=== PATIENT | female | born 1950 | race African-American/Black ===

== ENCOUNTER 2017-04-13 08:05 | Inpatient (IN) ==
[2017-04-13] MEDS ORDERED: HYDROmorphone 2 MG/1 ML VIAL IV STA ×2 (08:11→09:52)
[2017-04-13] MEDS ORDERED: ONDANSETRON 4 MG/2 ML VIAL IV STA (08:11)
[2017-04-13] MEDS ORDERED: ONDANSETRON 4 MG/2 ML VIAL ONE (08:14)
[2017-04-13] MEDS ORDERED: HYDROmorphone 2 MG/1 ML VIAL ONE ×2 (08:14→09:54)
[2017-04-13] MEDS ORDERED: SODIUM CHLORIDE 0.9% 1,000 ML IV STA (08:22)
--- NOTE | 2017-04-13 08:34 | EKG Report ---
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
--- NOTE | 2017-04-13 09:24 | XRay Report ---
XR abdomen 2V Indication: Abdominal pain. Comparison: Abdominal series 10/06/2013 Technique: Flat and erect images of the abdomen were performed. Findings: Heart size is borderline. Partially calcified left hilar lymph node is demonstrated. Lungs are clear. Atherosclerotic calcification of the aortic knob is demonstrated. No organomegaly suggested. The bowel gas pattern demonstrates no significant abnormality. Bony structures as well as soft tissues demonstrate no evidence of significant pathology. Rounded calcification adjacent the right transverse process of L4 measures 45 mm in transverse dimension and has changed little since comparison study suggesting gonadal vein phlebolith. Other considerations could include right gonadal vein phlebolith. Multiple intrapelvic calcifications are present. Impression: 1. No active process is suggested within the abdomen or pelvis. Other findings as detailed. 04/13/2017 9:16 AM PROCEDURE INTERPRETED AT [facility] DEPARTMENT OF RADIOLOGY Final Report Signed by: Dr. Isreal Carter
[2017-04-13 09:27] LABS: Basophils % 0.3 % (0.0-0.8); Eosinophils # 0.1 10*3/uL (0.0-0.87); Eosinophils % 1.7 % (0.00-10.9); Hemoglobin 12.6 GM/DL (12.0-16.0); Immature Granulocytes % 0.2 %; Immature Granulocytes Absolute 0.01 #; Lymphocytes # 1.2 10*3/uL (1.4-4.0); Lymphocytes % 18.8 % (21.3-54.2); Mean Corpuscular HGB Conc 34.1 GM/DL (32-36); Mean Corpuscular Hemoglobin 32 PG (27-34); Mean Corpuscular Volume 92.7 FL (87-102); Mean Platelet Volume 11.6 FL (9.6-12.0); Monocytes # 0.4 10*3/uL (0.11-0.8); Monocytes % 5.4 % (1.7-12.7); Neutrophils # 4.8 10*3/uL (1.4-7.4); Neutrophils % 73.6 % (38.7-73.9); Platelet Count 185 T/CUMM (130-400); Red Blood Count 3.99 MC/CUMM (3.8-5.5); Red Cell Distribution Width 14.3 % (9.3-17.3); White Blood Count 6.5 T/CUMM (4-12)
--- NOTE | 2017-04-13 09:28 | Ultrasound Report ---
US gallbladder Indication: Right upper quadrant abdominal pain. Comparison: None. Technique: Using transcutaneous probe, ultrasound imaging of the right upper quadrant was performed. Ultrasound images were captured and stored. Imaged structures include the liver, gallbladder, pancreas, right kidney, aorta, and inferior vena cava. Findings: Longitudinal images of the aorta and inferior vena cava appear within normal limits. Pancreas demonstrates no significant abnormality. The liver is normal in size and demonstrates no evidence of focal hepatic mass. Color flow is present within the imaged hepatic and portal venous segments. The common bile duct is normal in size measuring 4.1 mm. The right kidney measures 10.2 cm in craniocaudal dimension and demonstrates prominence of the renal calyceal and pelvic system suggesting mild hydronephrosis. Gallbladder demonstrates no significant abnormality. Impression: 1. Minimal hydronephrosis of the right kidney is suggested. 2. No acute findings are demonstrated. 04/13/2017 9:24 AM PROCEDURE INTERPRETED AT [facility] DEPARTMENT OF RADIOLOGY Final Report Signed by: Dr. Isreal Carter
[2017-04-13 10:01] LABS: Alanine Aminotransferase 42 U/L (13-56); Albumin 3.3 G/DL (3.4-5.0); Alkaline Phosphatase 59 U/L (45-117); Amylase 80 U/L (25-115); Aspartate Amino Transferase 74 U/L (0-37); Blood Urea Nitrogen 15 MG/DL (7-18); Calcium 8.3 MG/DL (8.5-10.1); Glucose 101 MG/DL (74-106); Magnesium 1.7 MG/DL (1.8-2.4); Osmolality,Calculated 288.7 MOS/KG (273-304); Potassium 3.3 MMOL/L (3.5-5.1); Sodium 145 MMOL/L (136-145); Total Protein 7.2 G/DL (6.4-8.3); Troponin I Only < 0.015 NG/ML (0.00-0.045)
--- NOTE | 2017-04-13 10:32 | CT Report ---
Referring physician: Wilmer Gonzalez EXAM: CT abdomen and pelvis with and without contrast DATE: 04/13/2017 COMPARISON: Gallbladder ultrasound 04/13/2017 REASON: Generalized abdominal pain TECHNIQUE: Axial images of the abdomen and pelvis were obtained with and without the use of 100 cc of Omnipaque 350 IV contrast. . Coronal and sagittal reformatted images were also provided. Total DLP was 1247.90 mGy*cm. FINDINGS: Atelectasis at the lung bases with cardiomegaly and coronary artery calcifications. The liver is normal in size with no dilated ducts. 5 mm hypodensity in the left lobe. The gallbladder is distended with no calcified gallstones. The spleen, pancreas and adrenal glands have an unremarkable appearance. Minimal fullness of the right extrarenal pelvis with no renal or ureteral calculi. Calcification in the wall of the nondilated abdominal aorta with no adjacent adenopathy. Minimally increased fluid in the small bowel which is not significantly dilated. Diverticulosis of the colon with no evidence of definite diverticulitis, appendicitis, free air, or free fluid. Increased signal material in the colon. Prior hysterectomy with unremarkable urinary bladder. Degenerative changes are noted. IMPRESSION: Cardiomegaly with coronary artery calcifications and atelectasis at the lung bases. Nonspecific distention of the gallbladder with 5 mm left hepatic cyst. Minimal fullness of the right extrarenal pelvis with no renal or ureteral calculi. Diffuse arterial calcifications. Increased fluid in the small bowel which is not significantly dilated. This finding can be seen with enteritis, etc. Minimal diverticulosis of the colon with increased fecal material. Prior hysterectomy. The CT exam was performed using one or more of the following dose reduction techniques: Automated exposure control and adjustment of the mA and/or kV according to patient size. PROCEDURE INTERPRETED AT [facility] DEPARTMENT OF RADIOLOGY Final Report Signed by: Dr. Lupe Alexander
[2017-04-13] MEDS ORDERED: METOCLOPRAMIDE 10 MG/2 ML VIAL IV STA (10:44)
[2017-04-13 11:23] LABS: Apearance,Urine CLEAR (Clear); Bilirubin,Urine Negative (Negative); Blood, Urine Negative (Negative); Glucose,Urine (UA) Negative (Negative); Ketones,Urine Negative (Negative); Nitrite,Urine Negative (Negative); Protein,Urine Negative; RBC,Urine 1 /HPF (0-4); Squamous Epithelial Cell,Urine Occasional /HPF (0-10); Urine Color Yellow (Yellow); Urine Specific Gravity 1.035 (1.001-1.035); Urine Urobilinogen < 2.0 EU/DL (0.2-1.0); WBC,Urine <1 /HPF (0-6)
[2017-04-13] MEDS ORDERED: ALUMINUM/MAGNES/SIMETH MAX STR 30 ML UDCUP PO PRN (11:33)
[2017-04-13] MEDS ORDERED: ACETAMINOPHEN 325 MG TABLET PO PRN (11:33)
--- NOTE | 2017-04-13 11:37 | Emergency Department Note ---
Darshan Robles Hilary, am scribing for, and in the presence of, Wilmer Gonzalez MD 08:22. Carlos Robles Phillip K, MD, personally performed the services described in this documentation, ascribed by Taylor Sexton in my presence, and it is both accurate and complete . Arrival - Arrival Chief Complaint: Abdominal / Flank Pain ED Nursing Triage Note: c/o abd pain going up into epigastric area on this am. + n/v. last bm was this am. pt will not answer questions Mode of Arrival: Stretcher Limitations: No Limitations Source: Patient, RN Notes Reviewed Time Seen by Provider: 04/13/17 08:13 - History of Present Illness HPI Narrative: Pt is a 66 y/o white female brought into the ED via EMS with c/o abdominal pain which onset this morning. She and her daughter reports that she has had this before and was told that she has diverticulitis. Pt confirms constipation, vomiting clear fluid, abdominal and back pain but denies diarrhea or fever. Pt has a PMHx of diverticulitis, HTN, and dyslipidemia. No other complaints or problems stated in the ED. Onset (ago): hour(s) Allergies/Adverse Reactions: Allergies Allergy/AdvReac Type Severity Reaction Status Date / Time meperidine [From Demerol] Allergy Intermediate Anxiety Verified 03/17/15 11:26 pregabalin [From Lyrica] Allergy Intermediate Anxiety Verified 03/17/15 11:27 sumatriptan [From Imitrex] Allergy Intermediate Chest Pain Verified 03/17/15 11: 26 Home Medications: Home Medications Medication Instructions Recorded Confirmed Type Calcitriol [Calcitriol] 0.25 capsule PO 1200 04/13/17 04/13/17 History Carvedilol [Carvedilol] 12.5 mg PO BID 04/13/17 04/13/17 History Omeprazole [Omeprazole] 20 mg PO 1200 04/13/17 04/13/17 History Potassium Chloride 8 meq PO 1200 04/13/17 04/13/17 History Pravastatin [Pravachol] 40 mg PO BEDTIME 04/13/17 04/13/17 History Promethazine Tab [Phenergan Tab] 25 mg PO BID PRN 04/13/17 04/13/17 History Review of System - Review of System 12 point system: reviewed and no additional remarkable complaints except as stated - Review of System Constitutional: Absent: fever Gastrointestinal: Present: abdominal pain, nausea, vomiting, constipation. Absent: diarrhea Musculoskeletal: Present: lower back pain Medical,Surgical,& Family Hx - Medical History Cardio: History of: Hypertension Endocrine: History of: Dyslipidemia - Social History Smoking Status: Unknown if ever smoked Frequency of Alcohol Use: Unknown Type of Drug Use: Unknown Exam Vital Signs: Vital Signs Temperature 96.8 F L 04/13/17 08:08 Pulse Rate 63 04/13/17 09:45 Respiratory Rate 14 04/13/17 09:45 Blood Pressure 157/78 04/13/17 09:45 O2 Sat by Pulse Oximetry 97 04/13/17 09:45 - General General appearance: alert, in no apparent distress - Head Head exam: Present: atraumatic, normocephalic - Eye Eye exam: Present: normal appearance, PERRL, EOMI - ENT ENT exam: Present: mucous membranes moist, TM's normal bilaterally. Absent: mucous membranes dry - Neck Neck exam: Present: full ROM, trachea midline. Absent: tenderness - Chest Chest inspection: Present: symmetric chest wall rise. Absent: tenderness - Respiratory Respiratory exam: Present: normal lung sounds bilaterally. Absent: respiratory distress - Cardiovascular Cardiovascular exam: Present: regular rate, normal rhythm, normal heart sounds. Absent: murmur, rubs, gallop - Abdominal Exam Abdominal exam: Present: soft, tenderness (RUQ tenderness to direct palpation, slight LUQ tenderness), normal bowel sounds. Absent: distention - Extremities Exam Extremities exam: Present: full ROM. Absent: tenderness - Back Exam Back exam: Present: full ROM. Absent: tenderness - Neurological Exam Neurological exam: Present: alert, oriented X3, CN II-XII intact. Absent: motor sensory deficit - Psychiatric Psychiatric exam: Present: normal affect, normal mood - Skin Skin exam: Present: warm, dry, intact, normal color, rash Course Course Narrative: Dr. Hughes was consulted and he was seen in the ED. Results - Labs CBC & BMP: 04/13/17 09:20 04/13/17 09:20 Lab Results: I have reviewed the patients labs (Urinalysis is normal) Labs: Laboratory Tests 04/13/17 09:20 WBC 6.5 RBC 3.99 Hgb 12.6 Hct 37.0 Lymph % (Auto) 18.8 L Lymph # (Auto) 1.2 L Laboratory Tests 04/13/17 09:20 Sodium 145 Potassium 3.3 L Chloride 108 H Carbon Dioxide 27 Calcium 8.3 L Magnesium 1.7 L AST 74 H Albumin 3.3 L Globulin 3.9 H Albumin/Globulin Ratio 0.8 L Laboratory Tests 04/13/17 10:23 Urine Color Yellow Urine Appearance Clear Urine Urobilinogen < 2.0 H - EKG EKG results: interpreted by ERMEfrain, sinus rhythm (Nonspecific ST-T changes) - Diagnostic Findings Procedure: Abdominal x-ray: report reviewed by me (No acute process is suggested within th eabdomen or pelvis. ), CT Abdomen and Pelvis: report reviewed by me (Cardiomegaly with coronary artery calcifications and atelectasis at the lung bases. Nonespecific distention of the gallbladder with 5mm left hepatic cyst. Minimal fullness of the right extrarenal pelvis with no renal or ureteral calculi. Diffuse arterial calcifications. Increased fluid in the small bowel which is not significantly dilated. This finding can be seen with enteritis etc. Minimal diverticulosis of the colon with increased fecal material. Prior Hysterectomy. ), Ultrasound: report reviewed by me, pending ( gallbladder: 1. Minimal hydroephrosis of the right kidney is suggested 2. No acute findings are demonstrated) Disposition Clinical Impression: Possible acalculous cholecystitis, Abdominal pain, Vomiting Case discussed with: patient Disposition: Still a Patient Condition: Guarded Additional Instructions: Admit for further workup.
--- NOTE | 2017-04-13 11:45 | General Surg History&Physical ---
Assessment and Plan - Time spent with patient Time spent with patient: Greater than 30 minutes (1) Abdominal pain Status: Acute Assessment and plan: Impression: Abdominal pain etiology unclear questionable cholecystitis Plan: IV fluids and IV antibiotics and plan to do a HIDA scan tomorrow Current Visit: Yes Qualifiers: Abdominal location: epigastric Qualified Code(s): R10.13 - Epigastric pain (2) Chronic obstructive pulmonary disease Status: Acute Assessment and plan: Chronic obstructive pulmonary disease diagnosis per Dr. Mills Current Visit: Yes (3) Weight loss Status: Acute Assessment and plan: Weight loss according to the patient etiology unknown. Current Visit: Yes History of Present Illness Chief complaint: Recurrent abdominal pain with nausea and vomiting History of present illness: Ms. Jj is a 66 year old female -[place] who comes to the emergency room because of a second episode of some nausea and vomiting and abdominal pain onset earlier this morning. She cannot give a good history for any fatty food intolerance at this time. Apparently several weeks ago she was at [facility] because of a similar episode and was told she had diverticulitis. The daughter seems indicate that her pain seems to be more epigastric right-sided than in the left lower quadrant area. She has had a colonoscopy little while back and is apparently had a recent EGD that was described as negative. All this was done at [place]. She came here where her labs look pretty normal then she had a CT scan of the abdomen and pelvis that was unremarkable with a little bit of prominence of the gallbladder. Ultrasound of the gallbladder though was pretty negative with no significant wall thickening no fluid in and no evidence of any stones in the gallbladder. Since this is questionable we will go ahead and plan to put her hand on some IV fluids and clear liquids with the idea of planning a HIDA scan tomorrow to see if it is diagnostic of anything at this time. Home Medications Medication Instructions Recorded Confirmed Type Calcitriol [Calcitriol] 0.25 capsule PO 1200 04/13/17 04/13/17 History Carvedilol [Carvedilol] 12.5 mg PO BID 04/13/17 04/13/17 History Omeprazole [Omeprazole] 20 mg PO 1200 04/13/17 04/13/17 History Potassium Chloride 8 meq PO 1200 04/13/17 04/13/17 History Pravastatin [Pravachol] 40 mg PO BEDTIME 04/13/17 04/13/17 History Promethazine Tab [Phenergan Tab] 25 mg PO BID PRN 04/13/17 04/13/17 History Allergies Allergy/AdvReac Type Severity Reaction Status Date / Time meperidine [From Demerol] Allergy Intermediate Anxiety Verified 03/17/15 11:26 pregabalin [From Lyrica] Allergy Intermediate Anxiety Verified 03/17/15 11:27 sumatriptan [From Imitrex] Allergy Intermediate Chest Pain Verified 03/17/15 11: 26 Medical,Surgical,& Family Hx - Medical History Cardio: History of: Hypertension Endocrine: History of: Dyslipidemia, Thyroid Disorder Musculoskeletal: History of: Back/Neck Problems - Surgical History HEENT Surgeries: Surgical HX of: Thyroid Surgery (Thyroid and Parathyroid) Abdominal Surgeries: Surgical HX of: Colonoscopy (Dr Rodriguez) - Social History Smoking Status: Unknown if ever smoked Frequency of Alcohol Use: Unknown Type of Drug Use: Unknown Exam - Constitutional Vitals: Period Temp Pulse Resp BP Sys/Cano Pulse Ox Last 24 Hr 96.8 F-96.8 F 60-91 14-22 157-174/78-88 96-100 General appearance: mild distress - Head Head exam: Present: normal inspection - ENT ENT exam: Present: normal exam - Neck Neck exam: Present: normal inspection - Respiratory Respiratory exam: Present: clear to auscultation bilaterally, rales - Cardiovascular Cardiovascular exam: Present: RRR - GI/Abdominal GI/Abdominal exam: Present: hypoactive bowel sounds, soft. Absent: mass, Jackson 's sign, tenderness - Extremities Exam Extremities exam: Present: normal inspection - Back Exam Back exam: Present: normal inspection - Neurological Exam Neurological exam: Present: alert, oriented X3, CN II-XII intact - Skin Skin exam: Present: normal color, warm, dry 12 point system: reviewed and no additional remarkable complaints except as stated Quality Measures - VTE Contraindication to Pharmacological VTE Prophylaxis: High Risk of Bleeding Results - Labs CBC & BMP: 04/13/17 09:20 04/13/17 09:20 Lab Results: I have reviewed the past 24 hour labs
[2017-04-13] MEDS: DEXTROSE 5% NACL 0.45% 1,000 ML IV SCH (13:46)
[2017-04-13] MEDS: CALCITRIOL 0.25 MCG CAPSULE PO SCH (13:51)
[2017-04-13] MEDS: HYDROmorphone 2 MG/1 ML VIAL IV PRN ×2 (13:52→20:16)
[2017-04-13] MEDS: ONDANSETRON 4 MG/2 ML VIAL IV PRN ×2 (13:55→20:34)
[2017-04-13] MEDS ORDERED: diphenhydrAMINE CAP 25 MG CAPSULE PO PRN (22:04)
[2017-04-13] MEDS: DOCUSATE SODIUM 100 MG CAPSULE PO SCH (22:18)
[2017-04-13] MEDS: PRAVASTATIN 40 MG TABLET PO SCH (22:18)
[2017-04-13] MEDS: CARVEDILOL 12.5 MG TABLET PO SCH (22:18)
[2017-04-14] MEDS: DEXTROSE 5% NACL 0.45% 1,000 ML IV SCH ×3 (02:52→15:30)
[2017-04-14 05:42] LABS: Basophils % 0.2 % (0.0-0.8); Eosinophils # 0.1 10*3/uL (0.0-0.87); Eosinophils % 0.9 % (0.00-10.9); Hematocrit 34.7 VOL% (35.7-47.0); Hemoglobin 11.7 GM/DL (12.0-16.0); Immature Granulocytes % 0.3 %; Immature Granulocytes Absolute 0.02 #; Lymphocytes # 1.1 10*3/uL (1.4-4.0); Lymphocytes % 19.8 % (21.3-54.2); Mean Corpuscular HGB Conc 33.7 GM/DL (32-36); Mean Corpuscular Hemoglobin 32 PG (27-34); Mean Corpuscular Volume 93.8 FL (87-102); Mean Platelet Volume 11.9 FL (9.6-12.0); Monocytes # 0.5 10*3/uL (0.11-0.8); Monocytes % 8.5 % (1.7-12.7); Neutrophils % 70.3 % (38.7-73.9); Platelet Count 172 T/CUMM (130-400); Red Cell Distribution Width 14.3 % (9.3-17.3); White Blood Count 5.8 T/CUMM (4-12)
[2017-04-14 06:19] LABS: Bilirubin,Total 0.9 MG/DL (0.2-1.0); Calcium 7.6 MG/DL (8.5-10.1); Osmolality,Calculated 284.8 MOS/KG (273-304); Potassium 3.8 MMOL/L (3.5-5.1); Total Protein 6.3 G/DL (6.4-8.3)
[2017-04-14] MEDS: DOCUSATE SODIUM 100 MG CAPSULE PO SCH ×2 (09:30→20:40)
[2017-04-14] MEDS: CARVEDILOL 12.5 MG TABLET PO SCH ×2 (09:30→20:40)
[2017-04-14] MEDS: PANTOPRAZOLE 40 MG VIAL IV SCH (09:31)
--- NOTE | 2017-04-14 11:42 | XRay Report ---
Exam: XR chest 2V Indication: Abdominal pain Comparison study: Prior chest radiograph July 16, 2014 Findings: Left hilar calcified lymph node is unchanged from prior. Cardiac silhouette is borderline enlarged, similar to prior. Mediastinal contours appear within normal limits and stable from prior. There is no focal consolidation, pneumothorax or pleural effusion identified. Impression: No acute cardiopulmonary process. No significant change from prior. PROCEDURE INTERPRETED AT [facility] DEPARTMENT OF RADIOLOGY Final Report Signed by: Hammad Hammond
--- NOTE | 2017-04-14 12:52 | General Surgery Progress Note ---
Assessment and Plan - Time spent with patient Time spent with patient: Less than 30 minutes (1) Abdominal pain Status: Acute Assessment and plan: Impression: Abdominal pain etiology unclear questionable cholecystitis Plan: IV fluids and IV antibiotics and plan to do a HIDA scan tomorrow 04/14/2017. Patient in general is better at this time. Less pain. Her labs are all normal looking especially her liver function studies. HIDA scan is now complete and appears to be normal. I think we can safely say that her pain was not related to the gallbladder. We will put her on a diet and see what her symptoms do may be able to go home tomorrow. Current Visit: Yes Qualifiers: Abdominal location: epigastric Qualified Code(s): R10.13 - Epigastric pain (2) Chronic obstructive pulmonary disease Status: Acute Assessment and plan: Chronic obstructive pulmonary disease diagnosis per Dr. Mills Current Visit: Yes (3) Weight loss Status: Acute Assessment and plan: Weight loss according to the patient etiology unknown. Current Visit: Yes Subjective Patient reports: Present: no new complaints, pain is less, afebrile Exam - Constitutional Vitals: Period Temp Pulse Resp BP Sys/Cano Pulse Ox Last 24 Hr 97.2 F-98.3 F 51-64 16-22 103-153/56-75 94-100 General appearance: no acute distress - Head Head exam: Present: normal inspection - ENT ENT exam: Present: normal exam - Neck Neck exam: Present: normal inspection - Respiratory Respiratory exam: Present: clear to auscultation bilaterally - Cardiovascular Cardiovascular exam: Present: RRR - GI/Abdominal GI/Abdominal exam: Present: hypoactive bowel sounds, soft. Absent: tenderness - Extremities Exam Extremities exam: Present: normal inspection - Back Exam Back exam: Present: normal inspection - Neurological Exam Neurological exam: Present: alert, oriented X3, CN II-XII intact - Skin Skin exam: Present: normal color, warm, dry Results - Labs CBC & BMP: 04/14/17 04:45 04/14/17 04:45 Lab Results: I have reviewed the past 24 hour labs Quality Measures - VTE Contraindication to Pharmacological VTE Prophylaxis: High Risk of Bleeding
--- NOTE | 2017-04-14 12:58 | Nuclear Medicine Report ---
Hepatobiliary Scan with Ejection Fraction Date Performed: 04/14/2017 Radiopharmaceutical: 5 mCi Tc-99m Mebrofenin I.V. 8 ounces ensure p.o administered at the conclusion of the procedure to calculate gallbladder ejection fraction. Patient denied symptoms. Clinical Information: 66 years old Female with right upper quadrant recurrent abdominal pain. Comparison: Gallbladder ultrasound and CT abdomen and pelvis 04/13/2017 Technique: Two minute dynamic images were obtained for 60 minutes after injection of tracer. Findings: Normal uptake within the liver with excretion and collection within the gallbladder at 10 minutes. There is visualization within the common bile duct and common bile duct/small bowel at 20 minutes. The computed gallbladder ejection fraction is 89% (normal is greater than or equal to 38%) Conclusion: No scintigraphic evidence of acute cholecystitis. Normal gallbladder ejection fraction. PROCEDURE INTERPRETED AT [facility] DEPARTMENT OF RADIOLOGY Final Report Signed by: Hammad Hammond
[2017-04-14] MEDS: POTASSIUM CHLORIDE 8 MEQ CAPSULE PO SCH (13:17)
[2017-04-14] MEDS: CALCITRIOL 0.25 MCG CAPSULE PO SCH (13:18)
[2017-04-14] MEDS: PRAVASTATIN 40 MG TABLET PO SCH (20:40)
[2017-04-15] MEDS: HYDROmorphone 2 MG/1 ML VIAL IV PRN (00:23)
[2017-04-15] MEDS: DEXTROSE 5% NACL 0.45% 1,000 ML IV SCH ×3 (00:24→20:00)
[2017-04-15] MEDS: DOCUSATE SODIUM 100 MG CAPSULE PO SCH ×2 (08:46→20:37)
[2017-04-15] MEDS: CARVEDILOL 12.5 MG TABLET PO SCH ×2 (08:47→20:37)
[2017-04-15] MEDS: PANTOPRAZOLE 40 MG VIAL IV SCH (08:47)
[2017-04-15] MEDS: ONDANSETRON 4 MG/2 ML VIAL IV PRN (10:10)
--- NOTE | 2017-04-15 11:17 | General Surgery Progress Note ---
Assessment and Plan (1) Abdominal pain Status: Acute Assessment and plan: Impression: Abdominal pain etiology unclear questionable cholecystitis Plan: IV fluids and IV antibiotics and plan to do a HIDA scan tomorrow 04/14/2017. Patient in general is better at this time. Less pain. Her labs are all normal looking especially her liver function studies. HIDA scan is now complete and appears to be normal. I think we can safely say that her pain was not related to the gallbladder. We will put her on a diet and see what her symptoms do may be able to go home tomorrow. 04/15/2017. Patient's HIDA scan was completely normal with an ejection fraction of 80%. Ultrasound of the gallbladder was no stones and CT scan of the abdomen looked unremarkable. Did start the patient on some solid food yesterday and now she is still complaining of some abdominal discomfort and nausea and vomiting. Did not have any clear etiology for this at this time so will consult GI for possible scopes in order to see if we can determine a reason for this process. Current Visit: Yes Qualifiers: Abdominal location: epigastric Qualified Code(s): R10.13 - Epigastric pain (2) Chronic obstructive pulmonary disease Status: Acute Assessment and plan: Chronic obstructive pulmonary disease diagnosis per Dr. Mills Current Visit: Yes (3) Weight loss Status: Acute Assessment and plan: Weight loss according to the patient etiology unknown. Current Visit: Yes Subjective Patient reports: Present: pain is less, nausea, vomiting Exam - Constitutional Vitals: Period Temp Pulse Resp BP Sys/Cano Pulse Ox Last 24 Hr 97.2 F-98.7 F 60-66 18-20 133-161/61-78 94-99 General appearance: mild distress - Head Head exam: Present: normal inspection - ENT ENT exam: Present: normal exam - Neck Neck exam: Present: normal inspection - Respiratory Respiratory exam: Present: clear to auscultation bilaterally, rales - Cardiovascular Cardiovascular exam: Present: RRR - GI/Abdominal GI/Abdominal exam: Present: hypoactive bowel sounds, soft. Absent: distended, tenderness - Extremities Exam Extremities exam: Present: normal inspection - Back Exam Back exam: Present: normal inspection - Neurological Exam Neurological exam: Present: alert, oriented X3, CN II-XII intact - Skin Skin exam: Present: normal color, warm, dry Results - Labs CBC & BMP: 04/14/17 04:45 04/14/17 04:45 Lab Results: I have reviewed the past 24 hour labs - Diagnostic Findings Procedure: X-ray: report reviewed by me (HIDA scan normal) Quality Measures - VTE Contraindication to Pharmacological VTE Prophylaxis: High Risk of Bleeding
[2017-04-15] MEDS: CALCITRIOL 0.25 MCG CAPSULE PO SCH (12:24)
[2017-04-15] MEDS: POTASSIUM CHLORIDE 8 MEQ CAPSULE PO SCH (12:25)
[2017-04-15] MEDS: PRAVASTATIN 40 MG TABLET PO SCH (20:37)
[2017-04-16] MEDS: DEXTROSE 5% NACL 0.45% 1,000 ML IV SCH ×4 (05:06→22:42)
[2017-04-16 05:17] LABS: Basophils % 0.4 % (0.0-0.8); Eosinophils # 0.2 10*3/uL (0.0-0.87); Eosinophils % 4.3 % (0.00-10.9); Hematocrit 33.5 VOL% (35.7-47.0); Hemoglobin 11.3 GM/DL (12.0-16.0); Immature Granulocytes % 0.2 %; Immature Granulocytes Absolute 0.01 #; Lymphocytes # 1.9 10*3/uL (1.4-4.0); Mean Corpuscular HGB Conc 33.7 GM/DL (32-36); Mean Corpuscular Hemoglobin 31 PG (27-34); Mean Corpuscular Volume 92.8 FL (87-102); Monocytes # 0.6 10*3/uL (0.11-0.8); Monocytes % 10.5 % (1.7-12.7); Neutrophils # 2.9 10*3/uL (1.4-7.4); Neutrophils % 50.6 % (38.7-73.9); Platelet Count 161 T/CUMM (130-400); Red Blood Count 3.61 MC/CUMM (3.8-5.5); Red Cell Distribution Width 14.3 % (9.3-17.3); White Blood Count 5.6 T/CUMM (4-12)
[2017-04-16 05:51] LABS: Albumin 2.7 G/DL (3.4-5.0); Bilirubin,Total 0.4 MG/DL (0.2-1.0); Osmolality,Calculated 286.7 MOS/KG (273-304); Potassium 3.5 MMOL/L (3.5-5.1)
[2017-04-16] MEDS: BISACODYL 5 MG TABLET PO PRN (09:41)
[2017-04-16] MEDS: CARVEDILOL 12.5 MG TABLET PO SCH ×2 (09:42→22:43)
[2017-04-16] MEDS: HYDROmorphone 2 MG/1 ML VIAL IV PRN (09:42)
[2017-04-16] MEDS: DOCUSATE SODIUM 100 MG CAPSULE PO SCH ×2 (09:45→22:42)
--- NOTE | 2017-04-16 10:38 | Gastrointestinal Consult Note ---
Assessment and Plan (1) Abdominal pain Status: Acute Assessment and plan: 04/16-sudden onset of abdominal pain with nausea and vomiting. History of peptic ulcer disease. No other associated symptoms. Negative gallbladder workup at this time. Prior endoscopy at [facility]. Obtain [facility] endoscopy records. Plan for EGD tomorrow to further evaluate. Plan an addendum to followed by Dr. Simon. Current Visit: Yes Qualifiers: Abdominal location: epigastric Qualified Code(s): R10.13 - Epigastric pain History of Present Illness Chief complaint: Nausea, vomiting and epigastric pain History of present illness: Ms. Jj is a 66 year old female who was admitted to the hospital on 04/13 with sudden onset of epigastric pain with intractable nausea and vomiting. Patient' s daughter is at bedside and assist in history taking. Information also obtained from chart review. Patient states that she was awakened on Sunday morning out of sleep with an onset of lower abdominal pain that gradually radiated to her epigastric region. She states that the pain became more severe nature as the morning progressed and then she had an onset of nausea with some intractable vomiting. She denies any coffee-ground emesis or hematemesis with the vomiting episodes at that time. She also denies any melena or hematochezia now or in the recent past. She states that she has had a pain like this in the past a year ago and she was seen at [facility] and found to have peptic ulcer disease. She states this feels similar to that pain. She denies a history of NSAID use. She states she has lost approximately 15 pounds in the last month from this pain recurring and loss of appetite as well as inability to eat due to the nausea. She also reports a history of dysphagia with dilation in the past and states that she is having continued difficulty swallowing solids and pills at times. She also states that it constantly feels like something is stuck in her throat. CT of abdomen was noted to be unremarkable with acute findings. Gallbladder ultrasound was negative with no cholecystitis or cholelithiasis and HIDA scan was normal as well with EF of 89%. LFTs are unremarkable. BUN/creatinine ratio is normal at 7. Hemoglobin is stable 11.3. Her diet was resumed on yesterday following her HIDA scan however she is not been able to tolerate any food intake at this point. Home Medications Medication Instructions Recorded Confirmed Type Calcitriol [Calcitriol] 1 capsule PO 1200 04/13/17 04/13/17 History Carvedilol [Carvedilol] 12.5 mg PO BID 04/13/17 04/13/17 History Omeprazole [Omeprazole] 20 mg PO 1200 04/13/17 04/13/17 History Potassium Chloride 8 meq PO 1200 04/13/17 04/13/17 History Pravastatin [Pravachol] 40 mg PO BEDTIME 04/13/17 04/13/17 History Promethazine Tab [Phenergan Tab] 25 mg PO BID PRN 04/13/17 04/13/17 History Levothyroxine Tab [Synthroid Tab] 112 mcg PO DAILY@0700 04/14/17 04/14/17 History Allergies Allergy/AdvReac Type Severity Reaction Status Date / Time meperidine [From Demerol] Allergy Intermediate Anxiety Verified 03/17/15 11:26 pregabalin [From Lyrica] Allergy Intermediate Anxiety Verified 03/17/15 11:27 sumatriptan [From Imitrex] Allergy Intermediate Chest Pain Verified 03/17/15 11: 26 Medical,Surgical,& Family Hx - Medical History Cardio: History of: Hypertension Neurology: History of: Migraine Endocrine: History of: Dyslipidemia, Thyroid Disorder Respiratory: History of: Bronchitis Gastrointestinal: History of: Bowel Obstruction, Diverticulitis/ Diverticulosis , GERD Musculoskeletal: History of: Back/Neck Problems - Surgical History Cardiac Surgeries: Sugical HX of: Cardiac Catheterization (About 2 years ago) HEENT Surgeries: Surgical HX of: Thyroid Surgery (Thyroid and Parathyroid) Abdominal Surgeries: Surgical HX of: Colonoscopy (Dr Rodriguez) Reproductive Surgeries: Surgical HX of;: Breast Surgery (biopsy of both breast cyst), Hysterectomy - Family History Family History: Reports;: Family Heart Disease (father diet OK), Family Hypertension, Family Stroke (mother had cva) - Social History Smoking Status: Unknown if ever smoked Frequency of Alcohol Use: Unknown Type of Drug Use: Unknown 12 point system: reviewed and no additional remarkable complaints except as stated - Constitutional Constitutional: Present: as per HPI, weight loss (15 pounds 1 month) - EENT Eyes: Present: as per HPI Ears: Present: as per HPI Nose, mouth and throat: Present: as per HPI, dysphagia - Cardiovascular Cardiovascular: Present: as per HPI - Respiratory Respiratory: Present: as per HPI - Gastrointestinal Gastrointestinal: Present: as per HPI, abdominal pain, dysphagia, nausea, vomiting - Genitourinary Genitourinary: Present: as per HPI - Musculoskeletal Musculoskeletal: Present: as per HPI - Neurological Neurological: Present: as per HPI - Psychiatric Psychiatric: Present: as per HPI - Endocrine Endocrine: Present: as per HPI - Hematologic/Lymphatic Hematologic/Lymphatic: Present: as per HPI Exam - Constitutional Vitals: Period Temp Pulse Resp BP Sys/Cano Pulse Ox Last 24 Hr 97.3 F-98.9 F 56-60 18-20 132-152/72-78 95-100 General appearance: normal weight, no acute distress - Head Head exam: Present: normal inspection, normocephalic - Eye Eye exam: Present: other (Lids and conjunctivae unremarkable). Absent: scleral icterus - ENT ENT exam: Present: normal exam, normal oropharynx - Neck Neck exam: Present: normal inspection - Respiratory Respiratory exam: Present: clear to auscultation bilaterally. Absent: rales, rhonchi, wheezes - Cardiovascular Cardiovascular exam: Present: regular rate and rhythm. Absent: diastolic murmur , JVD, systolic murmur - GI/Abdominal GI/Abdominal exam: Present: normal bowel sounds, tenderness, soft. Absent: ascites, distended, mass, organomegaly - Extremities Exam Extremities exam: Present: normal inspection, full ROM - Back Exam Back exam: Present: normal inspection - Neurological Exam Neurological exam: Present: alert, oriented X3 - Psychiatric Psychiatric exam: Present: normal affect, normal mood - Skin Skin exam: Present: normal color, warm, dry Results - Labs CBC & BMP: 04/16/17 04:19 04/16/17 04:19 Lab Results: I have reviewed the past 24 hour labs - Diagnostic Findings Procedure: CT Abdomen and Pelvis: report reviewed by me, Ultrasound: report reviewed by me Quality Measures - VTE Contraindication to Pharmacological VTE Prophylaxis: High Risk of Bleeding
[2017-04-16] MEDS: CALCITRIOL 0.25 MCG CAPSULE PO SCH (11:08)
[2017-04-16] MEDS: POTASSIUM CHLORIDE 8 MEQ CAPSULE PO SCH (11:08)
[2017-04-16] MEDS: PANTOPRAZOLE 40 MG VIAL IV SCH (11:10)
--- NOTE | 2017-04-16 13:23 | General Surgery Progress Note ---
Assessment and Plan (1) Abdominal pain Status: Acute Assessment and plan: Impression: Abdominal pain etiology unclear questionable cholecystitis Plan: IV fluids and IV antibiotics and plan to do a HIDA scan tomorrow 04/14/2017. Patient in general is better at this time. Less pain. Her labs are all normal looking especially her liver function studies. HIDA scan is now complete and appears to be normal. I think we can safely say that her pain was not related to the gallbladder. We will put her on a diet and see what her symptoms do may be able to go home tomorrow. 04/15/2017. Patient's HIDA scan was completely normal with an ejection fraction of 80%. Ultrasound of the gallbladder was no stones and CT scan of the abdomen looked unremarkable. Did start the patient on some solid food yesterday and now she is still complaining of some abdominal discomfort and nausea and vomiting. Did not have any clear etiology for this at this time so will consult GI for possible scopes in order to see if we can determine a reason for this process. 04/16/2017. Patient still claimed that she is unable to eat having sense of nausea and maybe a little bit of vomiting at times if she tries to eat anything solid. She describes loss of good bit of weight over the last couple months and a due to this inability to eat and her complaint of the nausea and the discomfort in the abdomen. With clearing of the gallbladder is okay and we are waiting for GI to see her to see if they can help us determine what this problem might be and how we can improve it so that she will continue to lose weight. Current Visit: Yes Qualifiers: Abdominal location: epigastric Qualified Code(s): R10.13 - Epigastric pain (2) Chronic obstructive pulmonary disease Status: Acute Assessment and plan: Chronic obstructive pulmonary disease diagnosis per Dr. Mills Current Visit: Yes (3) Weight loss Status: Acute Assessment and plan: Weight loss according to the patient etiology unknown. Current Visit: Yes Subjective Patient reports: Present: no new complaints, bowel movement, nausea, afebrile, other (Patient still says that she is unable to eat without having some nausea and possible vomiting although is not clearly documented. She describes loss of weight due to her inability to eat.) Exam - Constitutional Vitals: Period Temp Pulse Resp BP Sys/Cano Pulse Ox Last 24 Hr 97.6 F-98.9 F 56-60 18-20 132-152/73-78 95-100 General appearance: mild distress - Head Head exam: Present: normal inspection - ENT ENT exam: Present: normal exam - Neck Neck exam: Present: normal inspection - Respiratory Respiratory exam: Present: clear to auscultation bilaterally, rales - Cardiovascular Cardiovascular exam: Present: RRR - GI/Abdominal GI/Abdominal exam: Present: normal bowel sounds, soft. Absent: distended, tenderness - Extremities Exam Extremities exam: Present: normal inspection - Back Exam Back exam: Present: normal inspection - Neurological Exam Neurological exam: Present: alert, oriented X3, CN II-XII intact - Skin Skin exam: Present: normal color, warm, dry Results - Labs CBC & BMP: 04/16/17 04:19 04/16/17 04:19 Lab Results: I have reviewed the past 24 hour labs Quality Measures - VTE Contraindication to Pharmacological VTE Prophylaxis: High Risk of Bleeding
[2017-04-16] MEDS: PRAVASTATIN 40 MG TABLET PO SCH (22:43)
[2017-04-17] MEDS: DEXTROSE 5% NACL 0.45% 1,000 ML IV SCH ×3 (03:09→23:57)
[2017-04-17] MEDS: HYDROmorphone 2 MG/1 ML VIAL IV PRN (05:05)
--- NOTE | 2017-04-17 09:11 | Event Note ---
Patient is seen and evaluated while awaiting EGD. She still complains of abdominal pain that is primarily epigastric in nature. Denies nausea and vomiting this morning. She says her pain is "about the same". We will await results of EGD before planning anything further.
[2017-04-17] MEDS: CARVEDILOL 12.5 MG TABLET PO SCH ×2 (10:39→20:45)
[2017-04-17] MEDS: PANTOPRAZOLE 40 MG VIAL IV SCH (10:39)
[2017-04-17] MEDS: LEVOTHYROXINE 112 MCG TABLET PO SCH (10:39)
[2017-04-17] MEDS ORDERED: PROPOFOL 200 MG/20 ML VIAL IV ONE (13:25)
[2017-04-17] MEDS ORDERED: LIDOCAINE 2% 5 ML VIAL ONE (13:25)
--- NOTE | 2017-04-17 13:34 | History and Physical Update ---
History and Physical Update - History and Physical H&P was reviewed, the patient examined and there: are no changes in the patients condition since last H&P was completed. - Physical Exam Mental Status: alert and oriented Heart: regular rate and rhythm Lung: clear to auscultation Abdomen: within normal limits Vitals: within normal limits
--- NOTE | 2017-04-17 13:37 | Operative Note ---
Date of procedure: 04/17/17 Pre-op diagnosis: Intractable nausea with vomiting Procedure: Procedure: Esophagogastroduodenoscopy with bougie dilation esophagus Brief clinical abstract: Patient is a 66-year-old female who has had intractable nausea with some vomiting in the last 4-5 days. She has had negative gallbladder evaluation. She also does complain of some dysphagia to solids last few months. Indication for procedure: Intractable nausea and vomiting, dysphagia Endoscopic findings:[After informed consent was obtained, the patient was placed in the left lateral decubitus position. The gastroscope was inserted in the upper esophagus under direct vision with no resistance encountered. Esophageal mucosa appeared normal down to the squamocolumnar junction. There was a mildly obstructive fibrous appearing stricture at that level consistent with reflux etiology. A small 1-2 cm long hiatal hernia was present just distal to this. The endoscope was advanced in the stomach which was carefully examined including retroflexed view of the cardia and fundus with no other abnormality seen. The pyloric channel, duodenal bulb, second and third portion of the duodenum were normal. The endoscope was withdrawn and Zepeda dilator size 54 [place] was inserted in the upper esophagus and advanced beyond the level of the GE junction with mild resistance encountered. No blood was noted on the dilator afterwards and she had no chest pain. She appeared to tolerate the procedure well. Impression: #1 distal esophageal stricture secondary to GERD-status post bougie dilation #2 small hiatal hernia Recommendations: PPI therapy and follow clinically for now. Try to advance diet. Anesthesia: MAC Surgeon / Physician: Miguel A Simon Estimated blood loss: none Specimens: none sent Condition: stable Disposition: post procedure unit Results - Labs CBC & BMP: 04/16/17 04:19 04/16/17 04:19 Discharge Plan - Discharge Medications No Action Pravastatin [Pravachol] 40 mg PO BEDTIME Potassium Chloride 8 meq PO 1200 Omeprazole [Omeprazole] 20 mg PO 1200 Carvedilol [Carvedilol] 12.5 mg PO BID Calcitriol [Calcitriol] 1 capsule PO 1200 Promethazine Tab [Phenergan Tab] 25 mg PO BID PRN PRN Reason: Nausea Levothyroxine Tab [Synthroid Tab] 112 mcg PO DAILY@0700 - Follow Up or Referral - Forms/Instructions
--- NOTE | 2017-04-17 13:40 | Anesthesia Post-Op ---
Anesthesia Post OP - Post Ansesthetic Evaluation Patient seen in post op: Yes Resp: within normal limits CV: within normal limits Mental: within normal limits Temp: within normal limits [id number]: within normal limits Nausea and Vomiting: within normal limits Pain: within normal limits
[2017-04-17] MEDS: CALCITRIOL 0.25 MCG CAPSULE PO SCH (17:52)
[2017-04-17] MEDS: DOCUSATE SODIUM 100 MG CAPSULE PO SCH ×2 (17:52→20:44)
[2017-04-17] MEDS: POTASSIUM CHLORIDE 8 MEQ CAPSULE PO SCH (17:55)
[2017-04-17] MEDS: BISACODYL 5 MG TABLET PO PRN (17:56)
[2017-04-17] MEDS: PRAVASTATIN 40 MG TABLET PO SCH (20:44)
[2017-04-18] MEDS: DEXTROSE 5% NACL 0.45% 1,000 ML IV SCH ×2 (05:21→11:53)
[2017-04-18] MEDS: LEVOTHYROXINE 112 MCG TABLET PO SCH (06:34)
[2017-04-18] MEDS: DOCUSATE SODIUM 100 MG CAPSULE PO SCH (08:16)
[2017-04-18] MEDS: CARVEDILOL 12.5 MG TABLET PO SCH (08:16)
[2017-04-18] MEDS: PANTOPRAZOLE 40 MG VIAL IV SCH (08:17)
--- NOTE | 2017-04-18 09:40 | Discharge Summary ---
Hospital Course - Hospital Course Hospital Course: Discharge summary: Discharge diagnosis: 1. Recurrent abdominal discomfort and nausea and vomiting etiology unclear. 2. Negative evaluation for cholecystitis and cholelithiasis. 3. Distal esophageal stricture with some reflux disease. Surgeon Dr. Hughes Loss Prevention/Safety District Manager Dr. Horton Procedure was EGD Brief summary: 66-year-old Afro[place] female came in the emergency room because of a recurring episode of nausea and vomiting with some epigastric discomfort. This has been a recurrent process over the last several months and she describes not been able to eat much and having weight loss about 15 pounds. She was seen in the emergency room where labs all look in normal especially liver function studies. At that point she received a ultrasound gallbladder basically was normal and then CT scan abdomen pelvis and also was normal and unremarkable. No stones were found in the gallbladder at this time. We admitted her put her on some IV antibiotics and went ahead and plan a HIDA scan the next day. The HIDA scan though was completely normal with an ejection fraction of 80%. At that point so we elected to go ahead and feed the patient since a gallbladder workup appeared to be negative. Unfortunately she had some more nausea and vomiting so we will consult GI at this time. Dr. Simon saw her and begin to evaluate her. Ended up doing an EGD that showed a little stricture in the esophagus that he dilated but otherwise was negative. No clear etiology for her complaints at this time but he did start her on some food and she seems to feel that she is better today and may be able to go home and tolerate food at that time. Since she is desiring to go home and a workup so far is negative we will let her go home and encourage her to see her family physician Dr. Hernandez in 2-3 weeks to be sure that all this can be followed up and that should be aware of what we found here. No good clear etiology for her symptoms this at this time. - Time spent with patient Time with patient DS: Less than 30 minutes Diagnosis - Discharge Diagnosis (1) Abdominal pain Status: Resolved (2) Chronic obstructive pulmonary disease Status: Chronic (3) Weight loss Status: Chronic Specialty Discharge - Follow Up or Referrals - Speciality Discharge Instructions Surgery Instructions: 1. Patient may increase her level of activities as tolerated. 2. I have encouraged her to eat good food and watch her weight closely. 3. I have encouraged her to check with Dr. Hernandez in about 2-3 weeks for her to follow-up and watch this process over time. Discharge Plan - Discharge Data Disposition: Disch To Home/Self Care Condition at Discharge: Stable Discharge Diet: advance to your usual diet Activity: resume usual activities as tolerated Hygiene: may shower Weight Bearing at Discharge: full weight bearing Driving: no restrictions Contact your physician if you experience:: fever over 101, Nausea/Vomiting, pain uncontrolled by pain medications - Discharge Medications New Alum/Mag/Simeth Max Str Liquid [Mylanta Max Strength Liquid] 15 ml PO Q6H PRN PRN Reason: Dyspepsia Levothyroxine Tab [Synthroid Tab] 112 mcg PO DAILY@0700 tablet Acetaminophen Tab [Tylenol Tab] 650 mg PO Q6H PRN tablet PRN Reason: Pain Mild (1-3) And/Or Fever Continue Pravastatin [Pravachol] 40 mg PO BEDTIME Potassium Chloride 8 meq PO 1200 Omeprazole 20 mg PO 1200 Carvedilol 12.5 mg PO BID Calcitriol 1 capsule PO 1200 Promethazine Tab [Phenergan Tab] 25 mg PO BID PRN PRN Reason: Nausea Levothyroxine Tab [Synthroid Tab] 112 mcg PO DAILY@0700 - Follow Up or Referral - Forms/Instructions Exam - Constitutional Vitals: Period Temp Pulse Resp BP Sys/Cano Pulse Ox Last 24 Hr 97.9 F-98.6 F 56-75 13-23 80-180/52-89 89-99 General appearance: no acute distress - Head Head exam: Present: normal inspection - ENT ENT exam: Present: normal exam - Neck Neck exam: Present: normal inspection - Respiratory Respiratory exam: Present: clear to auscultation bilaterally, rales - Cardiovascular Cardiovascular exam: Present: regular rate and rhythm - GI/Abdominal GI/Abdominal exam: Present: hypoactive bowel sounds, soft. Absent: distended, tenderness - Extremities Exam Extremities exam: Present: normal inspection - Back Exam Back exam: Present: normal inspection - Neurological Exam Neurological exam: Present: alert, oriented X3, CN II-XII intact - Psychiatric Psychiatric exam: Present: normal affect, normal mood, anxious - Skin Skin exam: Present: normal color, warm, dry DS: Provider Date of admission: 04/13/17 11:33 Primary care physician: . No PCP Attending physician on admission: Tremayne Hughes MD Consults: 04/13/17 13:12 Consult to Dietitian [CONS] Routine Reason for Dietitian: Dietary Consult 04/15/17 11:18 Consult to Physician [CONS] Routine Comment: DR SIMON ART EDUCATOR-MON Consulting Provider: Miguel A Simon Consult to Specialist Group: Gastroenterology When should Consulting Provider be notified: Now Person Notified: Dr. Tran Date Notified: 04/15/17 Time Notified: 11:29 Consult Notification Comment: Patient with recurrent nausea and vomiting and epigastric discomfort who has essentially a negative CT scan the abdomen pelvis and normal, ultrasound gallbladder, and a normal HIDA scan with ejection fraction of 80%. Etiology of process is not related to the gallbladder but do not know the source. Please evaluate and consider scopes Discharging clinician: Tremayne Hughes MD Expected date of discharge: 04/18/17
[2017-04-18 11:54] VITALS: BP 152/81
[2017-04-18] MEDS: POTASSIUM CHLORIDE 8 MEQ CAPSULE PO SCH (12:06)
[2017-04-18] MEDS: CALCITRIOL 0.25 MCG CAPSULE PO SCH (12:06)
== END 2017-04-18 12:28 | disposition home or self-care (01) | DRG 243 ==
LOC: EDUNIT# → EDBD → N.ED 08:05 → N.EDINP 11:33 → N.2E 12:22
PROVIDERS: ADMIT Specialist; ATTEND Specialist

== ENCOUNTER 2017-10-30 16:11 | Inpatient (IN) ==
[2017-10-30 18:32] LABS: Basophils % 0.2 % (0.0-0.8); Eosinophils # 0.1 10*3/uL (0.0-0.87); Hematocrit 41.3 VOL% (35.7-47.0); Hemoglobin 13.4 GM/DL (12.0-16.0); Immature Granulocytes % 0.2 %; Immature Granulocytes Absolute 0.01 #; Lymphocytes # 2.1 10*3/uL (1.4-4.0); Lymphocytes % 35.1 % (21.3-54.2); Mean Corpuscular HGB Conc 32.4 GM/DL (32-36); Mean Corpuscular Hemoglobin 31 PG (27-34); Mean Corpuscular Volume 94.7 FL (87-102); Mean Platelet Volume 11.4 FL (9.6-12.0); Monocytes # 0.4 10*3/uL (0.11-0.8); Neutrophils # 3.3 10*3/uL (1.4-7.4); Neutrophils % 55.5 % (38.7-73.9); Platelet Count 183 T/CUMM (130-400); Red Blood Count 4.36 MC/CUMM (3.8-5.5); Red Cell Distribution Width 14.4 % (9.3-17.3); White Blood Count 5.9 T/CUMM (4-12)
[2017-10-30 18:43] LABS: INR 1.1; PT Patient Result 11.8 SECS
[2017-10-30 18:52] LABS: Bilirubin,Total 0.6 MG/DL (0.2-1.0); Calcium 9.4 MG/DL (8.5-10.1); Magnesium 2.3 MG/DL (1.8-2.4); Osmolality,Calculated 285.8 MOS/KG (273-304); Potassium 4.2 MMOL/L (3.5-5.1); Total Protein 8.2 G/DL (6.4-8.3)
[2017-10-30] MEDS ORDERED: ONDANSETRON 4 MG/2 ML VIAL IV STA (21:28)
[2017-10-30] MEDS ORDERED: ASPIRIN 325 MG TABLET PO STA (21:28)
[2017-10-30] MEDS ORDERED: NITROGLYCERIN 2% OINT 1 INCH/GM PACK TOP STA (21:28)
[2017-10-30] MEDS ORDERED: SODIUM CHLORIDE 0.9% 500 ML IV STA (21:28)
[2017-10-30] MEDS ORDERED: MORPHINE 2 MG/1 ML SYRINGE IV STA (21:28)
[2017-10-30] MEDS ORDERED: ALUM/MAG/SIMETH/LIDO VISC 1:1 30 ML BOTTLE PO STA (21:28)
[2017-10-30] MEDS ORDERED: NITROGLYCERIN 2% OINT 1 INCH/GM PACK TOP ONE (21:42)
[2017-10-30] MEDS ORDERED: ONDANSETRON 4 MG/2 ML VIAL ONE (21:42)
[2017-10-30] MEDS ORDERED: ASPIRIN 325 MG TABLET ONE (21:43)
[2017-10-30] MEDS ORDERED: MORPHINE 2 MG/1 ML SYRINGE ONE (21:43)
[2017-10-30] MEDS ORDERED: ALUM/MAG/SIMETH/LIDO VISC 1:1 30 ML BOTTLE PO ONE (21:43)
[2017-10-30] MEDS ORDERED: ENOXAPARIN 100 MG/ML SYRINGE SUBCUT STA (22:24)
[2017-10-31] MEDS ORDERED: POTASSIUM CHLORIDE 20 MEQ TABLET PO PRN (00:10)
[2017-10-31] MEDS ORDERED: MAGNESIUM SULF RIDER 4 GM in PREMIX 1 EACH IV PRN (00:10)
[2017-10-31] MEDS ORDERED: SODIUM CHLORIDE 0.9% 1,000 ML IV SCH (00:10)
[2017-10-31] MEDS ORDERED: MAGNESIUM SULF RIDER 2 GM in PREMIX 1 EACH IV PRN (00:10)
[2017-10-31] MEDS ORDERED: ENOXAPARIN 80 MG/0.8 ML SYRINGE SUBCUT ONE ×3 (00:40→09:26)
[2017-10-31] MEDS: NITROGLYCERIN 2% OINT 1 INCH/GM PACK TOP SCH ×2 (00:46→06:00)
[2017-10-31] MEDS ORDERED: ONDANSETRON 4 MG/2 ML VIAL ONE ×2 (00:52→04:58)
[2017-10-31] MEDS ORDERED: MORPHINE 2 MG/1 ML SYRINGE ONE ×2 (00:53→04:58)
[2017-10-31] MEDS: MORPHINE 2 MG/1 ML SYRINGE IV PRN ×2 (01:01→04:56)
[2017-10-31] MEDS: ONDANSETRON 4 MG/2 ML VIAL IV PRN ×2 (01:02→05:05)
[2017-10-31 04:27] LABS: Basophils % 0.2 % (0.0-0.8); Eosinophils # 0.1 10*3/uL (0.0-0.87); Eosinophils % 1.7 % (0.00-10.9); Hematocrit 36.7 VOL% (35.7-47.0); Immature Granulocytes % 0.2 %; Immature Granulocytes Absolute 0.01 #; Lymphocytes % 38.3 % (21.3-54.2); Mean Corpuscular HGB Conc 32.7 GM/DL (32-36); Mean Corpuscular Hemoglobin 31 PG (27-34); Mean Corpuscular Volume 94.6 FL (87-102); Mean Platelet Volume 11.8 FL (9.6-12.0); Monocytes # 0.4 10*3/uL (0.11-0.8); Monocytes % 8.5 % (1.7-12.7); Neutrophils # 2.7 10*3/uL (1.4-7.4); Neutrophils % 51.1 % (38.7-73.9); Platelet Count 159 T/CUMM (130-400); Red Blood Count 3.88 MC/CUMM (3.8-5.5); Red Cell Distribution Width 14.2 % (9.3-17.3); White Blood Count 5.2 T/CUMM (4-12)
[2017-10-31 04:54] LABS: Albumin 3.2 G/DL (3.4-5.0); Bilirubin,Total 0.7 MG/DL (0.2-1.0); Calcium 7.9 MG/DL (8.5-10.1); Magnesium 1.9 MG/DL (1.8-2.4); Osmolality,Calculated 286.8 MOS/KG (273-304); Potassium 3.7 MMOL/L (3.5-5.1); Risk Ratio 2.82; Total Protein 6.9 G/DL (6.4-8.3); VLDL CHOLESTEROL 11.2 MG/DL
[2017-10-31] MEDS ORDERED: NITROGLYCERIN 2% OINT 1 INCH/GM PACK TOP ONE (05:06)
[2017-10-31] MEDS ORDERED: ACETAMINOPHEN 500 MG TABLET ONE (08:39)
[2017-10-31] MEDS ORDERED: ACETAMINOPHEN 500 MG TABLET PO STA (08:42)
[2017-10-31] MEDS ORDERED: ASPIRIN EC 325 MG TABLET PO SCH (09:00)
[2017-10-31] MEDS ORDERED: ENOXAPARIN 80 MG/0.8 ML SYRINGE SUBCUT SCH (09:00)
[2017-10-31] MEDS ORDERED: ASPIRIN 325 MG TABLET ONE (09:26)
[2017-10-31] MEDS ORDERED: KETOROLAC 30 MG/1 ML VIAL IV SCH (10:30)
[2017-10-31] MEDS ORDERED: KETOROLAC 30 MG/1 ML VIAL ONE (11:18)
[2017-10-31 13:33] VITALS: BP 165/75
== END 2017-10-31 16:10 | disposition home or self-care (01) | DRG 198 ==
LOC: N.ED 16:11 → N.EDINP 22:25 → N.TELES 10-31 13:49
PROVIDERS: ADMIT Internal Medicine Interventional Cardiology; ATTEND Internal Medicine Interventional Cardiology